=== PATIENT | male | born 1940 | race Caucasian/White ===

== ENCOUNTER 2022-07-21 05:15 | Inpatient (IN) | payer OTHER ==
[~2022-07-21] VITALS: Ht 167.6 cm; Wt 77.1 kg
[2022-07-21] MEDS ORDERED: CEFAZOLIN SOD 1 GM/ ISO 50 ML PREMIX IV ONE (07:00)
[2022-07-21] MEDS ORDERED: ACETAMINOPHEN I.V. 1000 MG 100 ML IV ONE (07:27)
[2022-07-21] MEDS ORDERED: MEPERIDINE HCL/PF 25 MG/ML DISP.SYRIN IVP PRN (08:15)
[2022-07-21] MEDS ORDERED: METOCLOPRAMIDE HCL 10 MG/2 ML VIAL IVP PRN (08:15)
[2022-07-21] MEDS ORDERED: LABETALOL 100 MG/ 20ML VIAL IVP PRN (08:15)
[2022-07-21] MEDS ORDERED: HYDROmorphone 1 MG/ML INJ. CARTRIDGE IVP PRN ×3 (08:15→10:15)
[2022-07-21] MEDS ORDERED: hydrALAZINE HCL 20 MG/ML VIAL IVP PRN (08:15)
[2022-07-21] MEDS ORDERED: LR 1,000 ML IV SCH (08:15)
[2022-07-21] MEDS ORDERED: BUPIVACAINE LIPOSOME/PF 266 MG/20 ML VIAL INFIL ONE (09:24)
[2022-07-21] MEDS ORDERED: BUPIVACAINE /PF 0.25% 30 ML VIAL INJ ONE (10:15)
[2022-07-21] MEDS ORDERED: NS 100 ML BAG ONE (10:15)
[2022-07-21] MEDS ORDERED: DEXAMETHASONE SOD PHOSPHATE 4 MG/ML VIAL ONE (10:15)
[2022-07-21] MEDS ORDERED: ROCURONIUM BROMIDE 10 MG/ML (ZEMURON) ONE (10:15)
[2022-07-21] MEDS ORDERED: fentaNYL CITRATE/PF 100 MCG/2 ML AMP ONE (10:15)
[2022-07-21] MEDS ORDERED: ACETAMINOPHEN 325 MG TABLET PO PRN (10:15)
[2022-07-21] MEDS ORDERED: ONDANSETRON HCL 4 MG/2 ML VIAL IVP PRN (10:15)
[2022-07-21] MEDS ORDERED: PROPOFOL 200MG/ 20ML VIAL (DIPRIVAN) IV ONE (10:15)
[2022-07-21] MEDS ORDERED: SUGAMMADEX SODIUM 200 MG/2 ML VIAL IV ONE (10:15)
[2022-07-21] MEDS ORDERED: HYDROcodone/ACETAMIN 5-325 MG TAB (NORCO/ VICODIN) PO PRN (10:15)
[2022-07-21] MEDS ORDERED: NS IRRIG SOLN 1000 ML IR ONE (10:15)
[2022-07-21] MEDS ORDERED: ONDANSETRON HCL 4 MG/2 ML VIAL ONE (10:15)
[2022-07-21] MEDS ORDERED: NS 50 ML BAG IV ONE (10:15)
[2022-07-21] MEDS ORDERED: MIDAZOLAM HCL 5 MG/ML VIAL (VERSED) IV ONE (10:15)
[2022-07-21] MEDS ORDERED: LR 1,000 ML IV.SOLN IV ONE (10:15)
[2022-07-21] MEDS ORDERED: ISOFLURANE 15 MIN GAS INH ONE (10:15)
[2022-07-21 10:29] LABS: HEMATOCRIT 36.5 % (36-54); HEMOGLOBIN 11.7 g/dL (14.0-18.0)
[2022-07-21 10:46] LABS: ANION GAP 9 (5-15); CALCIUM 8.8 mg/dL (8.4-11.0); CHLORIDE 105 mmol/L (98-107); CREATININE 1.06 mg/dL (0.55-1.30); GLUCOSE 156 mg/dL (70-99); UREA NITROGEN, BLOOD 11 mg/dL (8-21)
[2022-07-21] MEDS ORDERED: HYDROmorphone 1 MG/ML INJ. CARTRIDGE ONE (11:02)
--- NOTE | 2022-07-21 11:35 | NUR ---
OPENING NOTE RECEIVED SBAR FROM BAND PRESSER. PATIENT IN BED, RESPIRATIONS EVEN, NON LABORED, BED IN LOW AND LOCKED POSITION CALL LIGHT WITHIN REACH, BED ALARM ON. SCD'S ON. ABLE TO USE INCENTIVE SPIROMETER PROPERLY.
--- NOTE | 2022-07-21 12:07 | NUR ---
CONSULTATION PAGED REASON FOR CONSULTATION MEDICAL MANAGMEENT WAS CONSULT CALED?Y PERSON WHO WAS NOTIFIED:VOICEMAIL LEFT CONSULTING PHYSICIAN:DR.SINGHJHUJHAR SENIOR LOAN OFFICER SPECIALTY:INTERNAL MEIDICNE SENIOR LOAN OFFICER PHONE NUMBER:[phone] REQUESTING PHYSICIAN:CONOR BOND
--- NOTE | 2022-07-21 12:50 | NUR ---
NURSE NOTE PATIENT USING INCENTIVE SPIROMETER CORRECTLY
[2022-07-21] MEDS: CEFAZOLIN 1 GM IVPB PREMIX 50 ML IV SCH ×2 (13:36→22:00)
[2022-07-21] MEDS: D5/0.45 NS 1,000 ML IV SCH ×2 (13:37→22:00)
--- NOTE | 2022-07-21 16:00 | NUR ---
DIET DR ORTEGA IS IN SURGERY, RN STATES CONTINUE ICE CHIPS AND WATER FOR MEDICATIONS ONLY
[2022-07-21] MEDS: HYDROcodone/ACETAMIN 5-325 MG TAB (NORCO/ VICODIN) PO PRN ×2 (16:06→21:30)
--- NOTE | 2022-07-21 16:12 | NUR ---
VOIDED ASSISTED PATIENT WITH AMBULATION TO THE BATHROOM, VOIDED. RETURNED TO BED, STEADY GAIT
--- NOTE | 2022-07-21 17:56 | NUR ---
NURSE NOTE PATIENT IN BED, IS BEDSIDE. IVF'S RUNNING ORDERED. SCD'S ON. PATIENT COMPLAINING OF PAIN TO ABDOMEN, BUT IT IS TOLERABLE. WILL USE CALL LIGHT IF HE WANTS PAIN MEDICATION
--- NOTE | 2022-07-21 19:21 | NUR ---
CLOSING NOTE PROVIDED SBAR TO NIGHT RN. PATIENT IN BED, RESPIRATIONS EVEN NON LABORED, BED IN LOW AND LOCKED POSITION CALL LIGHT WITHIN REACH. SCD'S ON, IVF'S RUNNING ORDERED. ENDORSED APPLICATION OF ABDOMINAL BINDER TO NIGHT RN
[2022-07-21 20:00] VITALS: BP_SYST 130
[2022-07-21] MEDS: FAMOTIDINE PF 20 MG/2 ML VIAL IVP SCH (21:30)
[2022-07-22 04:00] VITALS: BP_SYST 128
[2022-07-22 06:16] LABS: BASOPHILS % (AUTO) 0.2 % (0.0-2.0); EOSINOPHILS % (AUTO) 0.1 % (0.0-4.0); HEMATOCRIT 36.1 % (36-54); HEMOGLOBIN 11.7 g/dL (14.0-18.0); LYMPHOCYTES # (AUTO) 2.1 K/uL (1.0-5.5); LYMPHOCYTES % (AUTO) 13.5 % (20.5-51.5); MEAN CORPUSCULAR HEMOGLOBIN 30 pg (27-31); MEAN CORPUSCULAR HGB CONC 33 % (32-36); MEAN CORPUSCULAR VOLUME 91 fL (79.0-98.0); MONOCYTES # (AUTO) 1.6 K/uL (0.0-1.0); MONOCYTES % (AUTO) 10.7 % (1.7-9.3); NEUTROPHILS # (AUTO) 11.6 K/uL (1.8-7.7); NEUTROPHILS % (AUTO) 75.5 % (40.0-70.0); PLATELET COUNT (AUTO) 306 K/uL (130-430); RED BLOOD CELL COUNT(AUTO) 3.95 MIL/uL (4.2-6.2); RED CELL DISTRIBUTION WIDTH 14.3 % (9.0-15.0); WHITE BLOOD COUNT (AUTO) 15.3 K/uL (4.8-10.8)
[2022-07-22 07:03] LABS: ALANINE AMINOTRANSFERASE 19 U/L (12-78); ALBUMIN 2.9 g/dL (3.4-4.8); ANION GAP 10 (5-15); ASPARTATE AMINOTRANSFERASE 32 U/L (10-37); CALCIUM 9.1 mg/dL (8.4-11.0); CHLORIDE 102 mmol/L (98-107); CREATININE 1.03 mg/dL (0.55-1.30); GLUCOSE 147 mg/dL (70-99); TOTAL BILIRUBIN 0.7 mg/dL (0.0-1.0); UREA NITROGEN, BLOOD 11 mg/dL (8-21)
[2022-07-22 08:57] VITALS: BP_SYST 141
[2022-07-22] MEDS: FAMOTIDINE PF 20 MG/2 ML VIAL IVP SCH ×2 (10:44→20:45)
[2022-07-22] MEDS: ENOXAPARIN SODIUM 30 MG/0.3 ML SYRINGE SUBCUT SCH (10:44)
[2022-07-22 12:00] VITALS: BP_SYST 135
[2022-07-22] MEDS: HYDROcodone/ACETAMIN 5-325 MG TAB (NORCO/ VICODIN) PO PRN ×2 (14:05→20:46)
[2022-07-22] MEDS: D5/0.45 NS 1,000 ML IV SCH (15:04)
[2022-07-22 16:02] VITALS: BP_SYST 139
--- NOTE | 2022-07-22 18:54 | NUR ---
P.T. NOTES P.T. EVAL COMPLETED; REFER TO EVAL FOR DETAILS.
[2022-07-22 20:00] VITALS: BP_SYST 141
--- NOTE | 2022-07-22 20:15 | NUR ---
ASSESSMENT COMPLETED PLAN OF CARE REVIEWED PT ENDORSES PAIN AT ABDOMEN WILL MEDICATE ORDERED AND PT NOTED TO BE PLEASANTLY CONFUSED PT DID NOT UE CALL LIGHT TO GET OUT OF BED AND BED ALARM WENT OFF, ATTENDED TO BED ALARM TO FIND PT SITTING AT SIDE OF BED. PT MOVED TO ROOM 112A CLOSE TO NURSING STATION BED ALARM ACTIVATED WILL CONTINUE TO MONITOR AND ASSESS CALL LIGHT IN REACH AND PT ORIENTED TO ROOM
[2022-07-23] VITALS: BP_SYST 133
--- NOTE | 2022-07-23 00:51 | NUR ---
CONSULTATION PAGED/CALLED Reason for Consultation: MEDICAL MANAGMENT Person Who was Notified: SHASTA Consulting Physician: DR [facility] Front Loader Residential Driver Specialty: Ordering Physician: DR ORTEGA
[2022-07-23] MEDS: D5/0.45 NS 1,000 ML IV SCH (01:16)
[2022-07-23 04:00] VITALS: BP_SYST 136
--- NOTE | 2022-07-23 06:44 | NUR ---
PT SLEPT WELL THROUGH OUT NOC WITHOUT INCIDENCE NO ACUTE DISTRESS NOTED MARCELLO CALLED AND MADE AWARE OF PT ROOM CHANGE TO 112A ALL NEEDS ANTICIPATED AND MET
[2022-07-23 07:58] VITALS: BP_SYST 161
[2022-07-23] MEDS: FAMOTIDINE PF 20 MG/2 ML VIAL IVP SCH ×2 (08:24→21:39)
[2022-07-23] MEDS: ENOXAPARIN SODIUM 30 MG/0.3 ML SYRINGE SUBCUT SCH (08:24)
[2022-07-23] MEDS: HYDROcodone/ACETAMIN 5-325 MG TAB (NORCO/ VICODIN) PO PRN (11:33)
[2022-07-23 12:50] VITALS: BP_SYST 150
[2022-07-23 16:45] VITALS: BP_SYST 151
--- NOTE | 2022-07-23 18:59 | NUR ---
PT SLEEPING AT THIS TIME. NO DISTRESS NOTED. WILL ENDORSE CARE TO PM NURSE. ALL CARE NEEDS MET. FALL/SAFETY PRECAUTIONS IN PLACE.
[2022-07-23 20:00] VITALS: BP_SYST 136
[2022-07-24 05:38] VITALS: BP_SYST 119
[2022-07-24 09:05] VITALS: BP_SYST 141
[2022-07-24] MEDS: ENOXAPARIN SODIUM 30 MG/0.3 ML SYRINGE SUBCUT SCH (09:12)
[2022-07-24] MEDS: FAMOTIDINE PF 20 MG/2 ML VIAL IVP SCH (09:13)
[2022-07-24] MEDS: HYDROcodone/ACETAMIN 5-325 MG TAB (NORCO/ VICODIN) PO PRN (09:17)
--- NOTE | 2022-07-24 11:12 | NUR ---
Discharge appointments and vendors arranged by [facility] Representative Purnima Diaz [phone] [facility] will call with date and time Tyler Nixon in 1 week [facility] will call with date and time Please call Patient Support Center [phone] for worsening symptoms or trouble getting your medicine. For care needs when provider office is closed, contact Dontrell [facility] at [phone] or Keily [facility] [phone].
[2022-07-24 12:11] VITALS: BP_SYST 125
[2022-07-24 13:01] VITALS: BP_SYST 125
--- NOTE | 2022-07-24 13:20 | NUR ---
Pt has discharge orders. Pt requested that all teaching and instructions be provided when his arrives soon. Pt instructed to call when both are present and ready.
--- NOTE | 2022-07-24 13:58 | NUR ---
The pt's was requesting a shower chair for home so I contacted Purnima Diaz with [facility] and she reported she had just followed up with this request and it is not covered by the insurance company. She stated if necessary the family can get it typically at [facility].
--- NOTE | 2022-07-24 14:00 | NUR ---
Krystin, charge nurse, stated that MRSA screen needs not to be collected. It is normally collected prior to admission/surgery.
--- NOTE | 2022-07-24 14:39 | NUR ---
A message has been left with Dr. Nixon's service requesting a call back. The family is now requesting for home health for RN visit d/t the unexpected difficulty with the procedure.
--- NOTE | 2022-07-24 15:40 | NUR ---
D/C Patient Patient and have been given medication reconciliation form and D/C instructions. Exit Care provided. Patient and verbalized understanding. MD discussed with patient the results and treatment provided. They were informed that [facility] has made follow up appointment and will call them. I have a page to Dr. Nixon for home health request and waiting for return call. Ambulatory with steady gait,standby assist. REported history of fall. 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 I have also provided them with supplies. Patient in stable condition, ID band removed. IV catheter removed, intact and dressing applied, no active bleeding. No new presciptions, resuming all home meds. Patient educated on pain management. All belongings sent with patient. Pt will be assisted to lobby via W/C when dressed.
--- NOTE | 2022-07-24 16:38 | NUR ---
I have changed the dressing to the CYNTHIA drain. The pt was escorted to the front entryway via W/C and assisted into vehicle. Pt stable at time of DC. New order placed for home health pr family request.
[2022-07-24 16:40] VITALS: BP_SYST 114
== END 2022-07-24 16:30 | disposition home health service (06) | DRG 415 ==
LOC: SOR 05:15 → SMU 05:15 → SOR 10:56 → SMU 10:57
PROVIDERS: ADMIT Colon & Rectal Surgery; ATTEND Colon & Rectal Surgery
PROC: 0FJ44ZZ Inspection of Gallbladder, Percutaneous Endoscopic Approach (ICD-10-PCS; 2022-07-21)
PROC: 0DNU0ZZ Release Omentum, Open Approach (ICD-10-PCS; 2022-07-21)
PROC: 0FT40ZZ Resection of Gallbladder, Open Approach (ICD-10-PCS; principal; 2022-07-21 07:34)
DX: K80.12 Calculus of gallbladder with acute and chronic cholecystitis without obstruction (principal); K82.A2 Perforation of gallbladder in cholecystitis; Z20.822 Contact with and (suspected) exposure to COVID-19; Z53.31 Laparoscopic surgical procedure converted to open procedure
CPT/HCPCS: 36415; 71046-TC; 80048; 80053; 85018; 85025; 88304; 88313; 97116-GP; 97163-GP; C1727; C9290; J0131; J0690; J1100; J1170; J1650; J2250; J2405; J2704; J3010; J3490; J7120; Q9967; U0003